=== PATIENT | male | born 1980 | race Two or more races ===

== ENCOUNTER 2017-01-17 14:54 | Emergency (ER) | payer SELFPAY ==
[~2017-01-17] VITALS: Ht 157.5 cm; Wt 65.8 kg
[2017-01-17 15:17] VITALS: BP 128/70
== END 2017-01-17 16:29 | disposition home or self-care (01) ==
LOC: ER 14:54
DX: H66.93 Otitis media, unspecified, bilateral (principal); J06.9 Acute upper respiratory infection, unspecified

== ENCOUNTER 2019-11-25 23:03 | Emergency (ER) | payer SELFPAY ==
[~2019-11-25] VITALS: Ht 157.5 cm; Wt 68.0 kg
[2019-11-25 23:59] LABS: Basophils # (auto) 0 10 ^3/uL (0-0.2); Basophils % (auto) 0.2 % (0.0-2.0); Eosinophils # (auto) 0.2 10 ^3/uL (0-0.8); Eosinophils % (auto) 2.2 % (0.0-7.0); Hematocrit 44.8 % (41.0-53.0); Hemoglobin 14.8 g/dL (13.5-17.5); Lymphocytes # (auto) 1.6 10 ^3/uL (0.4-5.4); Lymphocytes % (auto) 19.8 % (10.0-50.0); Mean Corpuscular Hemoglobin 27.6 pg (28.0-32.0); Mean Corpuscular Volume 83.7 fL (80.0-100.0); Monocytes # (auto) 0.5 10 ^3/uL (0-1.3); Monocytes % (auto) 6.8 % (0.0-12.0); Neutrophils # (auto) 5.7 10 ^3/uL (1.6-8.6); Platelet Count (auto) 170 10^3/uL (140-450); Red Blood Cells 5.35 10^6/uL (4.5-5.90); Red Cell Distribution Width 14.2 % (11.8-14.3)
[2019-11-26 00:09] VITALS: BP 111/69
[2019-11-26 00:25] LABS: Albumin 4.1 g/dL (3.4-5.0); Calcium 9.2 mg/dL (8.5-10.1); Potassium 3.5 mmol/L (3.5-5.1)
[2019-11-26 00:27] LABS: Bilirubin, Total 0.4 mg/dL (0.2-1.0); Total Protein 8.1 g/dL (6.4-8.2)
[2019-11-26] MEDS ORDERED: DOXYCYCLINE 100 MG TAB/CAP PO ONE (01:15)
[2019-11-26] MEDS ORDERED: DexAMETHasone 4 MG TAB PO ONE (01:15)
== END 2019-11-26 01:50 | disposition home or self-care (01) ==
LOC: ER 23:05
DX: J18.9 Pneumonia, unspecified organism (principal); J01.00 Acute maxillary sinusitis, unspecified; Z20.828 Contact with and (suspected) exposure to other viral communicable diseases
CPT/HCPCS: 36415; 71045; 80053; 85025; 87426; 99284; J8540; U0003

== ENCOUNTER 2019-12-06 21:19 | Emergency (ER) | payer SELFPAY ==
[~2019-12-06] VITALS: Ht 157.5 cm; Wt 68.0 kg
[2019-12-06] MEDS ORDERED: ACETAMINOPHEN 325 MG TAB PO ONE (22:45)
[2019-12-06 23:50] LABS: Basophils # (auto) 0 10 ^3/uL (0-0.2); Basophils % (auto) 0.3 % (0.0-2.0); Eosinophils # (auto) 0 10 ^3/uL (0-0.8); Eosinophils % (auto) 0.1 % (0.0-7.0); Hematocrit 46.1 % (41.0-53.0); Hemoglobin 15.5 g/dL (13.5-17.5); Lymphocytes % (auto) 9.2 % (10.0-50.0); Mean Corpuscular Hemoglobin 28.1 pg (28.0-32.0); Mean Corpuscular Hgb Conc. 33.7 g/dL (32.0-36.0); Mean Corpuscular Volume 83.6 fL (80.0-100.0); Monocytes # (auto) 0.8 10 ^3/uL (0-1.3); Monocytes % (auto) 7.5 % (0.0-12.0); Neutrophils # (auto) 8.7 10 ^3/uL (1.6-8.6); Neutrophils % (auto) 82.9 % (37.0-80.0); Platelet Count (auto) 161 10^3/uL (140-450); Red Blood Cells 5.52 10^6/uL (4.5-5.90); Red Cell Distribution Width 14.5 % (11.8-14.3); White Blood Cell 10.4 10^3/uL (4.4-10.8)
[2019-12-06 23:53] LABS: Calcium 8.9 mg/dL (8.5-10.1); Chloride 102 mmol/L (98-107); INR 0.99 (0.9-1.15); Partial Thromboplastin Time 27.5 sec (23.0-31.2); Potassium 3.6 mmol/L (3.5-5.1); Sodium 134 mmol/L (136-145)
[2019-12-06 23:56] LABS: Alanine Aminotransferase 53 U/L (16-61); Albumin 3.4 g/dL (3.4-5.0); Anion Gap 6 (5-15); Aspartate Aminotransferase 28 U/L (15-37); BUN/Creatinine Ratio 18.9; Blood Urea Nitrogen 14 mg/dL (7-18); Carbon Dioxide 26 mmol/L (21-32); GFR African American 151 mL/min; GFR Non-African American 125 mL/min; Glucose 128 mg/dL (74-106); Magnesium 2.1 mg/dL (1.6-2.6)
[2019-12-07 00:02] LABS: Alkaline Phosphatase 55 U/L (45-117); Bilirubin, Total 0.3 mg/dL (0.2-1.0); Total Protein 7.5 g/dL (6.4-8.2)
[2019-12-07 00:30] VITALS: BP 120/75
[2019-12-13] MEDS ORDERED: FURO1TAB33 PO (12:33)
[2019-12-13] MEDS ORDERED: METH4PAK PO (12:33)
[2019-12-13] MEDS ORDERED: FAMO20TA10 PO (12:33)
[2019-12-13] MEDS ORDERED: ZINC220T6 PO (12:33)
[2019-12-13] MEDS ORDERED: ASCO100076 PO (12:33)
[2019-12-13] MEDS ORDERED: DOXY-286 PO (12:33)
[2019-12-13] MEDS ORDERED: POTA1TAB61 PO (12:33)
[2019-12-13] MEDS ORDERED: DEXT1SYP9 PO (12:56)
== END 2019-12-07 00:35 ==
LOC: ER 21:21
DX: R06.00 Dyspnea, unspecified; R06.02 Shortness of breath; R07.89 Other chest pain; Z20.828 Contact with and (suspected) exposure to other viral communicable diseases
CPT/HCPCS: 36415; 71045; 80053; 83605; 83735; 83880; 84443; 84484; 85025; 85379; 85610; 85730; 87426; 93005

== ENCOUNTER 2019-12-10 20:31 | Inpatient (IN) | payer SELFPAY ==
[~2019-12-10] VITALS: Ht 157.5 cm; Wt 63.1 kg
[2019-12-10] MEDS ORDERED: ALBUTEROL SULF HFA 90MCG INH 200DOSE IN SCH (22:00)
[2019-12-10] MEDS ORDERED: AZITHROMYCIN 500MG/ 250ML 250 ML IV ONE (22:15)
[2019-12-10 22:33] LABS: Basophils # (auto) 0 10 ^3/uL (0-0.2); Basophils % (auto) 0.4 % (0.0-2.0); Eosinophils # (auto) 0 10 ^3/uL (0-0.8); Eosinophils % (auto) 0.7 % (0.0-7.0); Hematocrit 41.2 % (41.0-53.0); Hemoglobin 13.9 g/dL (13.5-17.5); Lymphocytes # (auto) 1.2 10 ^3/uL (0.4-5.4); Lymphocytes % (auto) 21.2 % (10.0-50.0); Mean Corpuscular Hemoglobin 27.7 pg (28.0-32.0); Mean Corpuscular Hgb Conc. 33.7 g/dL (32.0-36.0); Mean Corpuscular Volume 82.2 fL (80.0-100.0); Monocytes # (auto) 0.5 10 ^3/uL (0-1.3); Monocytes % (auto) 9.6 % (0.0-12.0); Neutrophils # (auto) 3.8 10 ^3/uL (1.6-8.6); Neutrophils % (auto) 68.1 % (37.0-80.0); Nucleated Red Blood Cells % 0.2 %; Platelet Count (auto) 172 10^3/uL (140-450); Red Blood Cells 5.01 10^6/uL (4.5-5.90); Red Cell Distribution Width 14.3 % (11.8-14.3); White Blood Cell 5.6 10^3/uL (4.4-10.8)
[2019-12-10 22:45] LABS: INR 1.72 (0.9-1.15)
[2019-12-10 22:47] LABS: Anion Gap 6 (5-15); Blood Urea Nitrogen 9 mg/dL (7-18); Calcium 8.1 mg/dL (8.5-10.1); Carbon Dioxide 27 mmol/L (21-32); Chloride 103 mmol/L (98-107); Glucose 91 mg/dL (74-106); Potassium 3.4 mmol/L (3.5-5.1); Sodium 136 mmol/L (136-145)
[2019-12-10 22:52] LABS: Alanine Aminotransferase 36 U/L (16-61); Alkaline Phosphatase 46 U/L (45-117); Aspartate Aminotransferase 31 U/L (15-37); BUN/Creatinine Ratio 16.4; Bilirubin, Total 0.3 mg/dL (0.2-1.0); GFR African American 212 mL/min; GFR Non-African American 175 mL/min
[2019-12-11 01:48] LABS: Alcohol, Urine < 3.0 mg/dL (0-10); Amphetamine Screen, Urine NEGATIVE (NEGATIVE); Barbiturate Scree,Urine NEGATIVE (NEGATIVE); Benzodiazephine Screen, Urine NEGATIVE (NEGATIVE); Cannabinoid Screen, Urine NEGATIVE (NEGATIVE); Cocaine Screen, Urine NEGATIVE (NEGATIVE); Opiate Scree,Urine NEGATIVE (NEGATIVE); Phencyclidine Screen, Urine NEGATIVE (NEGATIVE)
[2019-12-11] MEDS ORDERED: POTASSIUM CHL 20 Meq TABLET PO ONE (02:30)
[2019-12-11] MEDS ORDERED: MORPHINE SULF INJ 2 MG/ML SYRINGE 1ML IV PRN (03:00)
[2019-12-11] MEDS ORDERED: ONDANSETRON HCL 4 MG/2 ML VIAL IV PRN (03:00)
[2019-12-11] MEDS ORDERED: ACETAMINOPHEN 325 MG TAB PO PRN (03:00)
[2019-12-11] MEDS ORDERED: NITROGLYCERIN 0.4 MG SL TAB SL PRN (03:00)
[2019-12-11] MEDS ORDERED: DOCUSATE SOD 100 MG CAP PO PRN (03:00)
[2019-12-11] MEDS ORDERED: MORPHINE SULFATE 4 MG/ML SYR/VIAL IV PRN (03:00)
[2019-12-11] MEDS ORDERED: HYDROcodone-ACET 5/325MG TAB PO PRN (03:00)
[2019-12-11 04:56] VITALS: BP_SYST 110; BP_SYST 118; BP_DIAS 60; BP_DIAS 72
[2019-12-11] MEDS ORDERED: ALBUTEROL SULF HFA 90MCG INH 200DOSE IN SCH (06:00)
--- NOTE | 2019-12-11 07:40 | NUR ---
OPENING NOTE NO REPORT RECEIVED. PATIENT IS LAYING IN BED WATCHING TV. ALERT AND ORIENTED. PATIENT ON ROOM AIR. NO S/S OF SOB/DISTRESS NOTED. BED SET TO LOWEST POSITION/LOCKED. BEDSIDE RAILS UP X2. CALL LIGHT WITHIN REACH. INSTRUCTED PATIENT TO CALL FOR ASSISTANCE. UPDATED ON POC. PATIENT VERBALIZED UNDERSTANDING. WILL CONTINUE TO MONITOR Q 1HR AND PRN.
[2019-12-11 08:00] VITALS: BP 112/71
[2019-12-11] MEDS: AZITHROMYCIN 500MG/ 250ML 250 ML IV SCH (09:46)
[2019-12-11] MEDS: MULTIPLE VITAMIN TAB PO SCH (09:47)
[2019-12-11] MEDS: FAMOTIDINE 20 MG TAB PO SCH ×2 (09:47→21:36)
[2019-12-11] MEDS: ASCORBIC ACID 500 MG TAB PO SCH ×2 (09:47→21:35)
[2019-12-11] MEDS: ZINC SULFATE 220mg CAP or TAB PO SCH (09:47)
[2019-12-11] MEDS: ENOXAPARIN SOD 40 MG/0.4 ML SYRINGE SC SCH (09:48)
[2019-12-11] MEDS ORDERED: INFLUENZA QUAD 2020-2021 0.5 ML SYRG IM ONE (10:15)
[2019-12-11 10:39] LABS: Basophils # (auto) 0 10 ^3/uL (0-0.2); Basophils % (auto) 0.7 % (0.0-2.0); Eosinophils # (auto) 0 10 ^3/uL (0-0.8); Eosinophils % (auto) 0.7 % (0.0-7.0); Hematocrit 40.1 % (41.0-53.0); Hemoglobin 13.5 g/dL (13.5-17.5); Lymphocytes # (auto) 0.9 10 ^3/uL (0.4-5.4); Lymphocytes % (auto) 22.3 % (10.0-50.0); Mean Corpuscular Hemoglobin 27.7 pg (28.0-32.0); Mean Corpuscular Hgb Conc. 33.6 g/dL (32.0-36.0); Mean Corpuscular Volume 82.4 fL (80.0-100.0); Monocytes # (auto) 0.4 10 ^3/uL (0-1.3); Monocytes % (auto) 10.3 % (0.0-12.0); Neutrophils # (auto) 2.5 10 ^3/uL (1.6-8.6); Nucleated Red Blood Cells % 0.1 %; Platelet Count (auto) 175 10^3/uL (140-450); Red Blood Cells 4.87 10^6/uL (4.5-5.90); Red Cell Distribution Width 14.3 % (11.8-14.3); White Blood Cell 3.9 10^3/uL (4.4-10.8)
[2019-12-11 10:47] LABS: Calcium 8.6 mg/dL (8.5-10.1); Potassium 3.6 mmol/L (3.5-5.1)
[2019-12-11 10:50] LABS: BUN/Creatinine Ratio 15.6
[2019-12-11 12:00] VITALS: BP 112/71
[2019-12-11 17:00] VITALS: BP 119/75
--- NOTE | 2019-12-11 19:55 | NUR ---
Opening note Assumed care of patient, patient is alert and orientated x4. No sob or distress noted. POC reviewed. All questions answered. Bed is locked in lowest position, side rails up x2. Call light within reach.
[2019-12-11] MEDS: SODIUM CHLOR 0.9% PF (SALINE LOCK) 10ML VIAL/SYR IV SCH (21:35)
[2019-12-11 21:48] VITALS: BP 114/52
--- NOTE | 2019-12-11 22:49 | NUR ---
Respiratory note: PT SEEN AND ASSESSED AT THIS TIME. NO DISTRESS NOTED. HR 93 RR 18 SP02 92% ON ROOM AIR.
[2019-12-12 04:51] VITALS: BP 114/70
[2019-12-12] MEDS: SODIUM CHLOR 0.9% PF (SALINE LOCK) 10ML VIAL/SYR IV SCH ×3 (06:00→21:44)
--- NOTE | 2019-12-12 07:30 | NUR ---
OPENING NOTE ASSUMED CARE OF PATIENT. ALERT AND ORIENTED. PATIENT ON ROOM AIR. NO S/S OF SOB/DISTRESS NOTED. BED SET TO LOWEST POSITION/LOCKED. BEDSIDE RAILS UP X2. CALL LIGHT WITHIN REACH. INSTRUCTED PATIENT TO CALL FOR ASSISTANCE. UPDATED ON POC. PATIENT VERBALIZED UNDERSTANDING. WILL CONTINUE TO MONITOR Q 1HR AND PRN.
[2019-12-12 08:00] VITALS: BP 109/75
[2019-12-12 08:13] LABS: Basophils # (auto) 0 10 ^3/uL (0-0.2); Basophils % (auto) 0.4 % (0.0-2.0); Eosinophils # (auto) 0.1 10 ^3/uL (0-0.8); Eosinophils % (auto) 1.4 % (0.0-7.0); Hematocrit 40.6 % (41.0-53.0); Hemoglobin 13.4 g/dL (13.5-17.5); Lymphocytes % (auto) 15.9 % (10.0-50.0); Mean Corpuscular Hemoglobin 27.4 pg (28.0-32.0); Mean Corpuscular Hgb Conc. 33.1 g/dL (32.0-36.0); Mean Corpuscular Volume 82.6 fL (80.0-100.0); Monocytes # (auto) 0.6 10 ^3/uL (0-1.3); Monocytes % (auto) 9.8 % (0.0-12.0); Neutrophils # (auto) 4.4 10 ^3/uL (1.6-8.6); Neutrophils % (auto) 72.5 % (37.0-80.0); Nucleated Red Blood Cells % 0.1 %; Platelet Count (auto) 210 10^3/uL (140-450); Red Blood Cells 4.91 10^6/uL (4.5-5.90); Red Cell Distribution Width 14.1 % (11.8-14.3)
[2019-12-12 08:46] LABS: Albumin 2.8 g/dL (3.4-5.0); BUN/Creatinine Ratio 26.2; Bilirubin, Total 0.4 mg/dL (0.2-1.0); Calcium 8.6 mg/dL (8.5-10.1); Total Protein 6.6 g/dL (6.4-8.2)
[2019-12-12] MEDS: ZINC SULFATE 220mg CAP or TAB PO SCH (09:48)
[2019-12-12] MEDS: AZITHROMYCIN 500MG/ 250ML 250 ML IV SCH (09:48)
[2019-12-12] MEDS: FAMOTIDINE 20 MG TAB PO SCH ×2 (09:48→21:45)
[2019-12-12] MEDS: MULTIPLE VITAMIN TAB PO SCH (09:48)
[2019-12-12] MEDS: ASCORBIC ACID 500 MG TAB PO SCH ×2 (09:49→21:44)
[2019-12-12] MEDS: ENOXAPARIN SOD 40 MG/0.4 ML SYRINGE SC SCH (09:49)
[2019-12-12] MEDS ORDERED: DOXYCYCLINE 100 MG TAB/CAP PO ONE (11:15)
[2019-12-12 11:54] LABS: CRP High Sensitivity 1.52 mg/dL (< 0.3)
[2019-12-12 12:00] VITALS: BP 110/70
[2019-12-12] MEDS ORDERED: POTASSIUM CHL 10 Meq TABLET PO ONE (13:45)
[2019-12-12] MEDS ORDERED: DexAMETHasone SOD PHOS 10MG/1ML VIAL INJ IV ONE (13:45)
[2019-12-12] MEDS ORDERED: FUROSEMIDE 20 MG/2 ML VIAL IV ONE (13:45)
[2019-12-12 14:16] LABS: INR 1.03 (0.9-1.15)
[2019-12-12 16:00] VITALS: BP 129/69
[2019-12-12] MEDS: DOXYCYCLINE 100 MG TAB/CAP PO SCH (21:44)
[2019-12-12 22:00] VITALS: BP 133/75
[2019-12-13 05:10] VITALS: BP 116/51
[2019-12-13] MEDS: SODIUM CHLOR 0.9% PF (SALINE LOCK) 10ML VIAL/SYR IV SCH ×2 (06:00→14:00)
[2019-12-13 08:10] LABS: Calcium 9.3 mg/dL (8.5-10.1); Potassium 4.5 mmol/L (3.5-5.1)
[2019-12-13 08:12] LABS: BUN/Creatinine Ratio 33.3
[2019-12-13 08:46] VITALS: BP 120/78
[2019-12-13] MEDS: ZINC SULFATE 220mg CAP or TAB PO SCH (09:07)
[2019-12-13] MEDS: FAMOTIDINE 20 MG TAB PO SCH (09:08)
[2019-12-13] MEDS: DOXYCYCLINE 100 MG TAB/CAP PO SCH (09:08)
[2019-12-13] MEDS: MULTIPLE VITAMIN TAB PO SCH (09:08)
[2019-12-13] MEDS: ENOXAPARIN SOD 40 MG/0.4 ML SYRINGE SC SCH (09:09)
[2019-12-13] MEDS: ASCORBIC ACID 500 MG TAB PO SCH (09:09)
[2019-12-13] MEDS ORDERED: FUROSEMIDE 20 MG/2 ML VIAL IV SCH (10:00)
[2019-12-13] MEDS ORDERED: DexAMETHasone SOD PHOS 10MG/1ML VIAL INJ IV SCH (10:00)
[2019-12-13] MEDS ORDERED: POTASSIUM CHL 10 Meq TABLET PO SCH (10:00)
[2019-12-13] MEDS ORDERED: FURO1TAB33 PO (12:33)
[2019-12-13] MEDS ORDERED: ASCO100076 PO (12:33)
[2019-12-13] MEDS ORDERED: FAMO20TA10 PO (12:33)
[2019-12-13] MEDS ORDERED: METH4PAK PO (12:33)
[2019-12-13] MEDS ORDERED: ZINC220T6 PO (12:33)
[2019-12-13] MEDS ORDERED: DOXY-286 PO (12:33)
[2019-12-13] MEDS ORDERED: POTA1TAB61 PO (12:33)
[2019-12-13 12:36] VITALS: BP 129/76
[2019-12-13] MEDS ORDERED: DEXT1SYP9 PO (12:56)
[2019-12-13 15:34] VITALS: BP 129/76
[2019-12-13 17:00] VITALS: BP 112/73
--- NOTE | 2019-12-13 18:41 | NUR ---
Discharge instructions given as ordered. Encourage to follow up with PMD as instructed. All questions and concerns addressed. Patient verbalized understanding. IV removed with catheter intact, pressure dressing applied. Telemetry unit returned to ICU.
--- NOTE | 2019-12-13 18:59 | NUR ---
Patient taken to vehicle via wheelchair with all personal belongings, accompanied by staff and family member. No distress noted at time of departure.
== END 2019-12-13 19:00 | disposition home or self-care (01) | DRG 177 ==
LOC: ER 20:31 → UNDOADMIN 20:32 → TELE 20:32 → TELE-EAST 20:32
PROVIDERS: ADMIT Nurse Practitioner Family; ATTEND Internal Medicine
DX: U07.1 COVID-19 (principal); J12.89 Other viral pneumonia; J96.00 Acute respiratory failure, unspecified whether with hypoxia or hypercapnia; J98.11 Atelectasis; E87.6 Hypokalemia
CPT/HCPCS: 36415; 36600; 71045; 71250; 80048; 80053; 80307; 82728; 82805; 83615; 83880; 84484; 85025; 85379; 85610; 85730; 86141; 87426; G0378; J1100

== ENCOUNTER 2019-12-20 15:26 | Inpatient (IN) | payer MEDICAID, SELFPAY ==
[~2019-12-20] VITALS: Ht 157.5 cm; Wt 63.0 kg
[~2019-12-20 15:26] MED LIST: ASCO100076 PO; DEXT1SYP9 PO; DOXY-286 PO; FAMO20TA10 PO; FURO1TAB33 PO; METH4PAK PO; POTA1TAB61 PO; ZINC220T6 PO
[2019-12-20 17:26] LABS: Basophils # (auto) 0.1 10 ^3/uL (0-0.2); Basophils % (auto) 0.3 % (0.0-2.0); Eosinophils # (auto) 0 10 ^3/uL (0-0.8); Hematocrit 45.4 % (41.0-53.0); Hemoglobin 15.1 g/dL (13.5-17.5); Lymphocytes # (auto) 1.3 10 ^3/uL (0.4-5.4); Lymphocytes % (auto) 8.8 % (10.0-50.0); Mean Corpuscular Hemoglobin 27.7 pg (28.0-32.0); Mean Corpuscular Hgb Conc. 33.2 g/dL (32.0-36.0); Mean Corpuscular Volume 83.5 fL (80.0-100.0); Monocytes # (auto) 0.7 10 ^3/uL (0-1.3); Neutrophils # (auto) 12.9 10 ^3/uL (1.6-8.6); Neutrophils % (auto) 85.9 % (37.0-80.0); Platelet Count (auto) 404 10^3/uL (140-450); Red Blood Cells 5.44 10^6/uL (4.5-5.90); Red Cell Distribution Width 14.4 % (11.8-14.3)
[2019-12-20 17:43] LABS: Alanine Aminotransferase 80 U/L (16-61); Albumin 3.7 g/dL (3.4-5.0); Anion Gap 5 (5-15); Aspartate Aminotransferase 34 U/L (15-37); BUN/Creatinine Ratio 17.9; Blood Urea Nitrogen 14 mg/dL (7-18); Calcium 8.8 mg/dL (8.5-10.1); Carbon Dioxide 29 mmol/L (21-32); Chloride 104 mmol/L (98-107); GFR African American 142 mL/min; GFR Non-African American 117 mL/min; Glucose 106 mg/dL (74-106); Potassium 4.5 mmol/L (3.5-5.1); Sodium 138 mmol/L (136-145)
[2019-12-20 17:44] LABS: INR 1.02 (0.9-1.15); Partial Thromboplastin Time 24.1 sec (23.0-31.2)
[2019-12-20 17:48] LABS: Alkaline Phosphatase 68 U/L (45-117); Bilirubin, Total 0.3 mg/dL (0.2-1.0); Total Protein 7.7 g/dL (6.4-8.2)
[2019-12-20] MEDS ORDERED: DexAMETHasone 4 MG TAB PO ONE (18:30)
[2019-12-20] MEDS ORDERED: ZINC SULFATE 220mg CAP or TAB PO ONE (18:30)
[2019-12-20] MEDS ORDERED: AZITHROMYCIN 500MG/ 250ML 250 ML IV ONE (18:30)
[2019-12-20] MEDS ORDERED: ASCORBIC ACID 500 MG TAB PO ONE (18:30)
[2019-12-20] MEDS ORDERED: NITROGLYCERIN 0.4 MG SL TAB SL PRN (21:00)
[2019-12-20] MEDS ORDERED: guaiFENesin-DM 100/10mg/5ml SYR PO PRN (21:00)
[2019-12-20] MEDS ORDERED: ACETAMINOPHEN 325 MG TAB PO PRN (21:00)
[2019-12-20] MEDS ORDERED: MORPHINE SULF INJ 2 MG/ML SYRINGE 1ML IV PRN (21:00)
[2019-12-20] MEDS ORDERED: ONDANSETRON HCL 4 MG/2 ML VIAL IV PRN (21:00)
[2019-12-20] MEDS ORDERED: TEMAZEPAM 15 MG CAP PO PRN (22:00)
[2019-12-20 22:40] VITALS: BP 131/76
--- NOTE | 2019-12-20 22:40 | NUR ---
Telemetry admit from ER to [address] admitted to Telemetry unit. Patient oriented to THEO VILLATORO, primary RN, unit, room, bed, and unit policies regarding patient care and visiting hours. Patient now on continuous telemetry monitoring, tele box #3 and telemetry reading on arrival to unit is sinus tachycardic. Patient is alert and oriented x4. Patient denies pain or shortness of breath at this time. Patient is on room air, spo2: 95% at this time. No sign/symptoms of distress noted or verbalized at this time. Instructed on plan of care and encouraged patient to call for assistance as needed, patient verbalized understanding. Bed is locked in lowest position, side rails x 2 are up, and call light is within reach.
--- NOTE | 2019-12-20 23:00 | NUR ---
HOME MEDICATIONS COLLECTED [facility]. POM wristband placed on patient.
[2019-12-20] MEDS: CHOLECALCIFEROL (VITD3) 2,000 UNIT CAP PO SCH (23:01)
[2019-12-20] MEDS: BUDESONIDE (INHALATION) 180 MCG IH IN SCH (23:01)
[2019-12-20] MEDS: FAMOTIDINE 20 MG TAB PO SCH (23:01)
[2019-12-20] MEDS: ENOXAPARIN SOD 40 MG/0.4 ML SYRINGE SC SCH (23:02)
[2019-12-20] MEDS: ALBUTEROL SULF HFA 90MCG INH 200DOSE IN SCH (23:02)
[2019-12-20] MEDS: DOXYCYCLINE 100MG/250ML 250 ML IV SCH (23:02)
[2019-12-20 23:08] VITALS: BP 122/85
[2019-12-20 23:25] LABS: Magnesium 2.7 mg/dL (1.6-2.6)
--- NOTE | 2019-12-20 23:28 | NUR ---
MRSA Swab MRSA swab collected and sent to lab via bullet.
[2019-12-20] MEDS ORDERED: ASCO500T11 PO (23:46)
[2019-12-21] MEDS ORDERED: INFLUENZA QUAD 2020-2021 0.5 ML SYRG IM ONE (00:30)
[2019-12-21 01:28] LABS: CRP High Sensitivity 0.06 mg/dL (< 0.3); Lactate Dehydrogenase 202 U/L (87-241)
[2019-12-21 04:43] VITALS: BP 119/76
--- NOTE | 2019-12-21 05:00 | NUR ---
Incentive Spirometer Provided patient an incentive spirometer. Educated patient on the purpose of the incentive spirometer, frequency, and how to properly use it. Patient verbalized understanding and returned demonstration. Patient able to raise marker to 1000ml.
[2019-12-21] MEDS: BUDESONIDE (INHALATION) 180 MCG IH IN SCH ×2 (06:26→21:20)
[2019-12-21] MEDS: ALBUTEROL SULF HFA 90MCG INH 200DOSE IN SCH ×3 (06:26→21:19)
[2019-12-21 06:40] LABS: Basophils # (auto) 0 10 ^3/uL (0-0.2); Basophils % (auto) 0.1 % (0.0-2.0); Eosinophils # (auto) 0 10 ^3/uL (0-0.8); Hematocrit 40.9 % (41.0-53.0); Hemoglobin 13.7 g/dL (13.5-17.5); Mean Corpuscular Hemoglobin 28.1 pg (28.0-32.0); Mean Corpuscular Hgb Conc. 33.4 g/dL (32.0-36.0); Mean Corpuscular Volume 84.2 fL (80.0-100.0); Monocytes # (auto) 0.5 10 ^3/uL (0-1.3); Monocytes % (auto) 5.8 % (0.0-12.0); Neutrophils # (auto) 7.4 10 ^3/uL (1.6-8.6); Neutrophils % (auto) 83.1 % (37.0-80.0); Platelet Count (auto) 336 10^3/uL (140-450); Red Blood Cells 4.86 10^6/uL (4.5-5.90); Red Cell Distribution Width 14.5 % (11.8-14.3); White Blood Cell 8.9 10^3/uL (4.4-10.8)
[2019-12-21 06:56] LABS: Albumin 3.1 g/dL (3.4-5.0); Anion Gap 4 (5-15); Blood Urea Nitrogen 12 mg/dL (7-18); Calcium 8.8 mg/dL (8.5-10.1); Carbon Dioxide 28 mmol/L (21-32); Chloride 106 mmol/L (98-107); Glucose 100 mg/dL (74-106); Potassium 4.4 mmol/L (3.5-5.1); Sodium 138 mmol/L (136-145)
[2019-12-21 07:03] LABS: Alanine Aminotransferase 60 U/L (16-61); Alkaline Phosphatase 56 U/L (45-117); Aspartate Aminotransferase 22 U/L (15-37); BUN/Creatinine Ratio 21.4; Bilirubin, Total 0.6 mg/dL (0.2-1.0); GFR African American 208 mL/min; GFR Non-African American 172 mL/min; Total Protein 6.5 g/dL (6.4-8.2)
[2019-12-21 08:00] VITALS: BP 114/72
[2019-12-21 08:50] VITALS: BP 114/72
[2019-12-21] MEDS: DOXYCYCLINE 100MG/250ML 250 ML IV SCH (09:38)
[2019-12-21] MEDS: ENOXAPARIN SOD 40 MG/0.4 ML SYRINGE SC SCH (09:39)
[2019-12-21] MEDS: ZINC SULFATE 220mg CAP or TAB PO SCH (09:39)
[2019-12-21] MEDS: FAMOTIDINE 20 MG TAB PO SCH ×2 (09:39→22:06)
[2019-12-21] MEDS: CHOLECALCIFEROL (VITD3) 2,000 UNIT CAP PO SCH (09:39)
[2019-12-21] MEDS: ASCORBIC ACID 1,000 MG TAB PO SCH (09:39)
[2019-12-21] MEDS ORDERED: DexAMETHasone SOD PHOS 10MG/1ML VIAL INJ IV SCH (10:00)
--- NOTE | 2019-12-21 11:55 | NUR ---
Provided Dr Hannah update on patient
--- NOTE | 2019-12-21 12:04 | NUR ---
ss consult Per consult no PCP. Rebekah Sharma to see patient today regarding PCP. Addendum: 12/21/19 at 1205 by Rebekah EVANS Amended: Links added.
[2019-12-21] MEDS ORDERED: cefTRIAXone 1GM/50ML D5W 50 ML IV ONE (12:15)
[2019-12-21 13:00] VITALS: BP 112/71
[2019-12-21 17:00] VITALS: BP 108/75
--- NOTE | 2019-12-21 20:00 | NUR ---
open note assumed care of pt, upon entering room pt on room air no distress noted or expressed. pt denies any pain. pt oriented to this nurse, updated on plan of care. pt bed locked, low and 2x rails up. call light in reach, this nurse to round q1hr and prn. pt encouraged to call as needed.
[2019-12-21 22:00] VITALS: BP 115/75
--- NOTE | 2019-12-21 23:00 | NUR ---
PT RINSED OUT HIS MOUTH POST PULMICORT TX Addendum: 12/21/19 at 2300 by BUSTER MCCRARY RT Amended: Links added.
[2019-12-22 05:00] VITALS: BP 120/79
--- NOTE | 2019-12-22 05:52 | NUR ---
pt moved to room 244-4, all belongings accounted for. pt tolerated well on room air with no complaints.
--- NOTE | 2019-12-22 07:42 | NUR ---
Opening Shift Note Assumed care of patient, awake and alert. No S/S of distress/SOB or pain. Instructed on POC and to call for assist PRN, will continue to monitor for changes Q1hr and PRN.
[2019-12-22 09:00] VITALS: BP 128/71
[2019-12-22] MEDS ORDERED: cefTRIAXone 1GM/50ML D5W 50 ML IV SCH (09:00)
[2019-12-22] MEDS: ZINC SULFATE 220mg CAP or TAB PO SCH (09:01)
[2019-12-22] MEDS: FAMOTIDINE 20 MG TAB PO SCH (09:01)
[2019-12-22] MEDS: ASCORBIC ACID 1,000 MG TAB PO SCH (09:01)
[2019-12-22] MEDS: CHOLECALCIFEROL (VITD3) 2,000 UNIT CAP PO SCH (09:02)
[2019-12-22] MEDS: ENOXAPARIN SOD 40 MG/0.4 ML SYRINGE SC SCH (09:02)
[2019-12-22] MEDS: ALBUTEROL SULF HFA 90MCG INH 200DOSE IN SCH ×3 (09:26→14:44)
[2019-12-22] MEDS: BUDESONIDE (INHALATION) 180 MCG IH IN SCH (09:26)
[2019-12-22] MEDS ORDERED: AZITHROMYCIN 250 MG TAB PO SCH (10:00)
[2019-12-22] MEDS ORDERED: AZIT250T9 PO (12:10)
[2019-12-22 12:55] VITALS: BP 107/57
--- NOTE | 2019-12-22 13:42 | NUR ---
Discharge instructions given as ordered. Encourage to follow up with discharge clinic as instructed. All questions and concerns addressed. Patient verbalized understanding. Medication reconciliation form completed and copy given to patient. Home medications held in Pharmacy returned to patient, and needed vaccines given. IV removed with catheter intact, pressure dressing applied . Telemetry unit returned to ICU. Patient taken to vehicle via wheelchair with all personal belongings, accompanied by staff to car. No distress noted at time of departure.
[2019-12-22 16:59] VITALS: BP 95/52
== END 2019-12-22 13:45 | disposition home or self-care (01) | DRG 720 ==
LOC: ER 15:26 → TELE 21:05 → TELE-EAST 22:40 → TELE-E-ADS 12-22 05:45
PROVIDERS: ADMIT Nurse Practitioner; ATTEND Internal Medicine Nephrology
DX: A41.89 Other specified sepsis (principal); U07.1 COVID-19; J12.89 Other viral pneumonia; Z82.49 Family history of ischemic heart disease and other diseases of the circulatory system
CPT/HCPCS: 36415; 71045; 80053; 82728; 83615; 83735; 83880; 84443; 84484; 85025; 85379; 85610; 85730; 86141; 87040; 87081; 87426; 93005; 94640; G0378; J0696; J1100; J3490

== ENCOUNTER 2022-02-27 11:21 | Emergency (ER) | payer MEDICAID ==
[~2022-02-27] VITALS: Ht 157.5 cm; Wt 70.0 kg
[~2022-02-27 11:21] MED LIST changes: -ASCO100076 PO; +ASCO500T11 PO; +AZIT250T9 PO; -DEXT1SYP9 PO
[2022-02-27 13:22] VITALS: BP 138/86
[2022-02-27] MEDS ORDERED: PROM1SOL4 PO (13:34)
[2022-02-27] MEDS ORDERED: PRED20TA2 PO (13:34)
== END 2022-02-27 13:50 | disposition home or self-care (01) ==
LOC: ER 11:21
DX: J06.9 Acute upper respiratory infection, unspecified (principal)
CPT/HCPCS: 71046